=== PATIENT | female | born 1955 | race Asian ===

== ENCOUNTER 2018-01-25 18:43 | Inpatient (IN) | payer OTHER ==
[~2018-01-25] VITALS: Ht 157.5 cm; Wt 56.7 kg
[2018-01-25] MEDS ORDERED: OLAN2.5T3 PO (19:03)
[2018-01-25] MEDS ORDERED: TEMAZEPAM 7.5 MG CAPSULE PO PRN (20:30)
[2018-01-25] MEDS ORDERED: LORAZEPAM 1 MG TABLET PO PRN (20:30)
[2018-01-25] MEDS ORDERED: ACETAMINOPHEN 325 MG TABLET PO PRN (20:30)
[2018-01-25] MEDS ORDERED: MAGNESIUM HYDROXIDE 30 ML LIQUID UDC PO PRN (20:30)
[2018-01-25] MEDS ORDERED: MAG HYDROX/AL HYDROX/SIMETH 30 ML LIQUID UDC PO PRN (20:30)
[2018-01-25 21:43] VITALS: BP 140/78
[2018-01-26 08:00] VITALS: BP 127/61
[2018-01-26 16:00] VITALS: BP 119/69
[2018-01-26] MEDS ORDERED: METF500T6 PO (19:11)
[2018-01-26] MEDS ORDERED: LISI-603 PO (19:12)
[2018-01-26 20:13] VITALS: BP 120/73
[2018-01-26] MEDS: OLANZAPINE 5 MG TABLET PO SCH (20:21)
[2018-01-27 07:30] VITALS: BP 115/62
[2018-01-27 16:23] VITALS: BP 117/66
[2018-01-27] MEDS: OLANZAPINE 5 MG TABLET PO SCH (20:20)
[2018-01-27 21:16] VITALS: BP 116/68
[2018-01-28 07:30] VITALS: BP 135/65
[2018-01-28 15:41] VITALS: BP 112/55
[2018-01-28] MEDS: OLANZAPINE 2.5 MG TABLET PO SCH (20:12)
[2018-01-28 20:27] VITALS: BP 155/64
[2018-01-29 07:30] VITALS: BP 135/64
[2018-01-29 15:21] VITALS: BP 132/82
[2018-01-29 20:00] VITALS: BP 133/72
[2018-01-29] MEDS: OLANZAPINE 2.5 MG TABLET PO SCH (20:45)
[2018-01-30 07:30] VITALS: BP 123/69
[2018-01-30 15:27] VITALS: BP 114/69
[2018-01-30 20:00] VITALS: BP 117/78
[2018-01-30] MEDS: OLANZAPINE 2.5 MG TABLET PO SCH (20:07)
[2018-01-31 07:30] VITALS: BP 121/59
[2018-01-31 16:15] VITALS: BP 128/61
[2018-01-31 19:45] VITALS: BP 125/56
[2018-01-31] MEDS: OLANZAPINE 5 MG TABLET PO SCH (20:23)
[2018-02-01 07:30] VITALS: BP 131/62
[2018-02-01] MEDS: NITROFURANTOIN/NITROFURAN MAC 100 MG CAPSULE PO SCH ×3 (09:00→20:28)
[2018-02-01 10:38] LABS: *BILIRUBIN,URIN NEGATIVE (NEGATIVE); *BLOOD, URINE NEGATIVE (NEGATIVE); *CLARITY,URINE CLEAR (CLEAR); *COLOR,URINE YELLOW (YELLOW); *KETONES,URINE NEGATIVE (NEGATIVE); *PROTEIN,URINE NEGATIVE (NEGATIVE); LEUKOCYTE ESTERASE ,URINE TRACE (NEGATIVE); NITRITE, URINE NEGATIVE (NEGATIVE); PH,URINE 6.5 (5.0-8.0); UGLUCOSE NEGATIVE (NEGATIVE)
[2018-02-01 11:29] LABS: BACTERIA,URINE NONE SEEN /HPF (NONE SEEN); MUCUS,URINE MODERATE /LPF (0-FEW); RBC,URINE 0-3 /HPF (0-3); SQUAMOUS EPITHELIAL CELL,UR FEW /HPF (NONE SEEN)
[2018-02-01 15:49] VITALS: BP 137/61
[2018-02-01] MEDS: OLANZAPINE 5 MG TABLET PO SCH (20:28)
[2018-02-01 20:29] VITALS: BP 120/64
[2018-02-02 07:30] VITALS: BP 127/58
[2018-02-02 07:47] LABS: BASOPHILS % (AUTO) 0.6 % (0.0-2.0); EOSINOPHILS # (AUTO) 0.1 K/uL (0.0-0.7); EOSINOPHILS % (AUTO) 1.6 % (0.0-7.0); HEMATOCRIT 27.8 % (31.2-41.9); HEMOGLOBIN 9.1 g/dL (10.9-14.3); LYMPHOCYTES # (AUTO) 1.7 K/uL (20.0-40.0); LYMPHOCYTES % (AUTO) 30.5 % (20.5-51.5); MEAN CORPUSCULAR HEMOGLOBIN 20.7 uug (24.7-32.8); MEAN CORPUSCULAR HGB CONC 33 g/dL (32.3-35.6); MONOCYTES # (AUTO) 0.4 K/uL (2.0-10.0); MONOCYTES % (AUTO) 7.8 % (0.0-11.0); NEUTROPHILS # (AUTO) 3.2 K/uL (1.8-8.9); NEUTROPHILS % (AUTO) 59.5 % (38.5-71.5); PLATELET COUNT (AUTO) 251 K/uL (179-408); RED BLOOD CELL COUNT(AUTO) 4.42 MIL/uL (3.63-4.92); WHITE BLOOD COUNT (AUTO) 5.4 K/uL (3.8-11.8)
[2018-02-02 08:20] LABS: THYROID STIMULATING HORMONE 1.644 mIU/mL (0.358-3.740)
[2018-02-02 08:48] LABS: BILIRUBIN,TOTAL 1.1 mg/dL (0.2-1.0); CREATININE 0.7 mg/dL (0.6-1.3); MAGNESIUM 2.2 mg/dL (1.8-2.4); POTASSIUM 3.9 mmol/L (3.5-5.1); TOTAL PROTEIN, SERUM 7.1 g/dL (6.4-8.2)
[2018-02-02 09:50] LABS: EOSINOPHILS % (MANUAL) 2 % (0-8); LYMPHOCYTES % (MANUAL) 30 % (20-40); MONOCYTES % (MANUAL) 8 % (2-10); NEUTROPHILS % (MANUAL) 60 % (42-75)
[2018-02-02] MEDS: NITROFURANTOIN/NITROFURAN MAC 100 MG CAPSULE PO SCH ×2 (09:52→20:57)
[2018-02-02 15:44] VITALS: BP 127/57
[2018-02-02 20:12] VITALS: BP 111/61
[2018-02-02] MEDS: OLANZAPINE 5 MG TABLET PO SCH (20:57)
[2018-02-03] MEDS: NITROFURANTOIN/NITROFURAN MAC 100 MG CAPSULE PO SCH ×2 (07:52→20:15)
[2018-02-03 07:56] VITALS: BP 126/42
[2018-02-03 15:58] VITALS: BP 127/43
[2018-02-03] MEDS: OLANZAPINE 5 MG TABLET PO SCH (20:15)
[2018-02-03 21:01] VITALS: BP 131/50
[2018-02-03] MEDS: FLUVOXAMINE MALEATE 25 MG TABLET PO SCH (21:30)
[2018-02-04 07:30] VITALS: BP 133/56
[2018-02-04] MEDS: NITROFURANTOIN/NITROFURAN MAC 100 MG CAPSULE PO SCH ×2 (07:57→20:10)
[2018-02-04] MEDS: FLUVOXAMINE MALEATE 25 MG TABLET PO SCH ×2 (07:57→20:10)
[2018-02-04] MEDS ORDERED: FLUVOXAMINE MALEATE 25 MG TABLET PO SCH (09:00)
[2018-02-04 14:24] VITALS: BP 129/51
[2018-02-04 20:00] VITALS: BP 149/71
[2018-02-04] MEDS: OLANZAPINE 5 MG TABLET PO SCH (20:11)
[2018-02-05 07:30] VITALS: BP 122/50
[2018-02-05] MEDS: FLUVOXAMINE MALEATE 25 MG TABLET PO SCH ×2 (08:58→21:00)
[2018-02-05] MEDS: OLANZAPINE 5 MG TABLET PO SCH ×2 (08:59→21:00)
[2018-02-05] MEDS: NITROFURANTOIN/NITROFURAN MAC 100 MG CAPSULE PO SCH ×2 (08:59→21:00)
[2018-02-05 16:07] VITALS: BP 118/60
[2018-02-05 20:04] VITALS: BP 114/60
[2018-02-06 07:30] VITALS: BP 120/49
[2018-02-06] MEDS: OLANZAPINE 5 MG TABLET PO SCH ×2 (08:10→20:28)
[2018-02-06] MEDS: NITROFURANTOIN/NITROFURAN MAC 100 MG CAPSULE PO SCH ×2 (08:10→20:28)
[2018-02-06] MEDS: FLUVOXAMINE MALEATE 25 MG TABLET PO SCH ×3 (08:10→17:39)
[2018-02-06 16:19] VITALS: BP 117/67
[2018-02-06 20:21] VITALS: BP 128/71
[2018-02-07 07:30] VITALS: BP 113/57
[2018-02-07] MEDS: OLANZAPINE 5 MG TABLET PO SCH (09:44)
[2018-02-07] MEDS: FLUVOXAMINE MALEATE 25 MG TABLET PO SCH ×2 (09:44→12:22)
[2018-02-07] MEDS: NITROFURANTOIN/NITROFURAN MAC 100 MG CAPSULE PO SCH (09:44)
== END 2018-02-07 13:30 | disposition home or self-care (01) | DRG 885 ==
LOC: ER 18:47 → GPS 20:21
PROVIDERS: ADMIT Internal Medicine; ATTEND Psychiatry & Neurology Psychiatry
DX: F20.0 Paranoid schizophrenia (principal); N39.0 Urinary tract infection, site not specified; F29 Unspecified psychosis not due to a substance or known physiological condition; D50.9 Iron deficiency anemia, unspecified; R79.89 Other specified abnormal findings of blood chemistry; F32.9 Major depressive disorder, single episode, unspecified; F60.0 Paranoid personality disorder
CPT/HCPCS: 36415; 71045; 83550; 83735; 84100; 84443; 85025; 87086; 93005; A4663